=== PATIENT | female | born 1995 | race Hispanic/Latino ===

== ENCOUNTER 2019-03-29 23:23 | Emergency (ER) | payer BC ==
--- OUTSIDE RECORDS SUMMARY | 2019-03-29 23:26 | XMS REPORT ---
:1995 Author Organization [employer] Care Team Providers Name Role Phone Sharmila Cameron Provider Role Unavailable Allergies, Adverse Reactions, Alerts Substance Reaction Event Type N.K.D.A. Info Not Available Non Drug Allergy Problems Problem Type Condition Code Onset Dates Condition Status Problem Vaginal delivery O80 Active Assessment Nexplanon insertion Z30.017 Active Problem History of group B Streptococcus Z86.19 Active (GBS) infection Assessment Encounter for initial prescription Z30.017 Active of implantable subdermal contraceptive Medications No Known Medications Results Name Result Date Reference Range Unit Abnormality Flag TEST URINE ----RESULTS neg 20180122 URINALYSIS AUTO W/O SCOPE ([id number]) ----PROTEIN neg 20180122 ----pH 6.5 20180122 ----NIT neg 20180122 ----TRIPP TR 20180122 ----URO 2.0 20180122 ----SPECIFIC GRAVITY 1.020 20180122 ----BLO neg 20180122 ----BILIRUBIN neg 20180122 ----KETONES 1+ 20180122 ----GLUCOSE neg 20180122 Summary Purpose [employer]ClinicalWorks Submission
--- OUTSIDE RECORDS SUMMARY | 2019-03-29 23:26 | XMS REPORT ---
:1995 Author Organization [employer] Care Team Providers Name Role Phone Sharmila Cameron Provider Role Unavailable Allergies, Adverse Reactions, Alerts Substance Reaction Event Type N.K.D.A. Info Not Available Non Drug Allergy Problems Problem Type Condition Code Onset Dates Condition Status Problem Vaginal delivery O80 Active Assessment Encounter for routine Z39.2 Active follow-up Problem History of group B Streptococcus Z86.19 Active (GBS) infection Assessment Vaginal delivery O80 Active Assessment History of group B Streptococcus Z86.19 Active (GBS) infection Medications No Known Medications Results No Known Results Summary Purpose [employer] Submission
[2019-03-29] MEDS ORDERED: LIDOCAINE 1% 20 ML MDV ONE ×2 (23:51→23:56)
--- NOTE | 2019-03-30 00:19 | ER ---
Nurse's Notes [facility] Name: Alka Elaine Age: 23 yrs Sex: Female : 1995 Arrival Date: 03/29/2019 Time: 23:25 Bed 6 Private MD: Diagnosis: Laceration without foreign body, right lower leg Presentation: 03/29 23:37 Presenting complaint: Patient states: Was playing outside in the dark and cut leg on a tl2 tree stump. Laceration sustained to right knee, bleeding controlled. Denies pain to leg. Transition of care: patient was not received from another setting of care. Onset of symptoms was March 29, 2019 at 23:00. Risk Assessment: Do you want to hurt yourself or someone else? Patient reports no desire to harm self or others. Initial Sepsis Screen: Does the patient meet any 2 criteria? No. Patient's initial sepsis screen is negative. Does the patient have a suspected source of infection? No. Patient's initial sepsis screen is negative. Care prior to arrival: None. 23:37 Method Of Arrival: Wheelchair tl2 23:37 Acuity: TAM 4 tl2 Triage Assessment: 23:38 General: Appears in no apparent distress. uncomfortable, Behavior is calm, cooperative, tl2 appropriate for age. Pain: Complains of pain in right knee. Neuro: Level of Consciousness is awake, alert, obeys commands, Oriented to person, place, time, situation. Respiratory: Airway is patent Respiratory effort is even, unlabored, Respiratory pattern is regular, symmetrical. Derm: Skin is pink, warm \T\ dry. Injury Description: Laceration sustained to right knee is clean, full thickness, 2.6 to 7.5 cm long, not bleeding, was sustained 30-60 minutes ago. a small amount of bleeding noted at this time. 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 - Social history:: Smoking status: Patient/guardian denies using tobacco. - Ebola Screening: : No symptoms or risks identified at this time. Screenin:40 Abuse screen: Denies threats or abuse. Nutritional screening: No deficits noted. tl2 Tuberculosis screening: No symptoms or risk factors identified. Fall Risk Gait- Impaired (20 pts.). Assessment: 23:41 General: see triage assessment. tl2 03/30 00:41 Reassessment: Patient appears in no apparent distress at this time. Patient and/or tl2 family updated on plan of care and expected duration. Pain level reassessed. Patient is alert, oriented x 3, equal unlabored respirations, skin warm/dry/pink. pt verbalized understanding of discharge instructions, need for follow up, prescription usage, wound care and use of knee immobilizer. Vital Signs: 03/29 23:38 BP 143 / 74; Pulse 92; Resp 18; Temp 98.7(O); Pulse Ox 98% on R/A; Weight 63.5 kg; tl2 Height 5 ft. 6 in. (167.64 cm); Pain 3/10; 03/30 00:41 BP 111 / 74; Pulse 74; Resp 18; Pulse Ox 99% on R/A; tl2 03/29 23:38 Body Mass Index 22.60 (63.50 kg, 167.64 cm) tl2 ED Course: 03/29 23:25 Patient arrived in ED. am2 23:35 Sidney Parr NP is PHCP. pm1 23:35 Perfecto Fajardo MD is Attending Physician. pm1 23:36 Brittney Foley RN is Primary Nurse. tl2 23:38 Triage completed. tl2 23:38 Arm band placed on right wrist. tl2 23:40 Patient has correct armband on for positive identification. Bed in low position. Call tl2 light in reach. Side rails up X 1. Adult w/ patient. 03/30 00:20 Assist provider with laceration repair on right knee that was between 2.6 to 7.5 cm tl2 using gordon. Set up tray. Performed by Sidney Parr PHOTONICS TECHNICIAN Dressed with 4X4s, Kerlix, Neosporin, Patient tolerated well. 00:20 Patient did not have IV access during this emergency room visit. tl2 00:41 Knee immobilizer applied on right knee. tl2 Administered Medications: 00:22 Drug: Lidocaine (1 %) 5 ml Volume: 5 ml; Route: Infiltration; tl2 00:30 Drug: [place] 5 mg-325 mg 1 tabs Route: PO; tl2 00:42 Follow up: Response: No adverse reaction; Medication administered at discharge. 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 Exp: tl2 12/20/2020. Lot #: [id number]. } Route: IM; Site: right deltoid; 00:42 Follow up: Response: No adverse reaction; Medication administered at discharge. tl2 Outcome: 00:16 Discharge ordered by MD. pm1 00:41 Discharged to home via wheelchair, with family. tl2 00:41 Condition: stable 00:41 Discharge instructions given to patient, family, Instructed on discharge instructions, follow up and referral plans. medication usage, wound care, Demonstrated understanding of instructions, follow-up care, medications, wound care, Prescriptions given X 2. 00:43 Patient left the ED. tl2 Signatures: Sidney Parr NP PHOTONICS TECHNICIAN pm1 Brittney Foley RN RN tl2 Yamileth Rogers am2
--- NOTE | 2019-03-30 00:20 | EDPHYS ---
Physician Documentation [facility] Name: Alka Elaine Age: 23 yrs Sex: Female : 1995 Arrival Date: 03/29/2019 Time: 23:25 Bed 6 Private MD: ED Physician Perfecto Fajardo HPI: 03/30 00:25 This 23 yrs old Female presents to ER via Wheelchair with complaints of pm1 Laceration To Leg. 00:25 The patient presents with a laceration, 6 cm(s), irregular. The complaints affect the pm1 right knee. Context: The problem was sustained outdoors, resulted from Patient tripped and fell down and possibly cut her right knee against a tree branch, the patient can fully bear weight, the patient is able to ambulate, Problem is a result from a previous injury: No. Onset: The symptoms/episode began/occurred just prior to arrival. Modifying factors: The symptoms are alleviated by nothing. the symptoms are aggravated by nothing. Associated signs and symptoms: Pertinent negatives numbness, swelling, tingling. Treatment prior to arrival includes: applying pressure to the affected area. The patient has not experienced similar symptoms in the past. The patient has not recently seen a physician. Patient was playing hide and seek with her outside and she tripped and possibly cut her right leg against a tree branch. 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 - Social history:: Smoking status: Patient/guardian denies using tobacco. - Ebola Screening: : No symptoms or risks identified at this time. ROS: 03/30 00:25 Constitutional: Negative for fever, chills, and weight loss, Eyes: Negative for injury, pm1 pain, redness, and discharge, ENT: Negative for injury, pain, and discharge, Neck: Negative for injury, pain, and swelling, Cardiovascular: Negative for chest pain, palpitations, and edema, Respiratory: Negative for shortness of breath, cough, wheezing, and pleuritic chest pain, Abdomen/GI: Negative for abdominal pain, nausea, vomiting, diarrhea, and constipation, Back: Negative for injury and pain, MS/Extremity: Negative for injury and deformity. Neuro: Negative for headache, weakness, numbness, tingling, and seizure. Skin: Positive for laceration(s), of the right knee. Exam: 00:25 Constitutional: This is a well developed, well nourished patient who is awake, alert, pm1 and in no acute distress. Head/Face: Normocephalic, atraumatic. Eyes: Pupils equal round and reactive to light, extra-ocular motions intact. Lids and lashes normal. Conjunctiva and sclera are non-icteric and not injected. Cornea within normal limits. Periorbital areas with no swelling, redness, or edema. Neck: Trachea midline, no thyromegaly or masses palpated, and no cervical lymphadenopathy. Supple, full range of motion without nuchal rigidity, or vertebral point tenderness. No Meningismus. Chest/axilla: Normal chest wall appearance and motion. Nontender with no deformity. No lesions are appreciated. Cardiovascular: Regular rate and rhythm with a normal S1 and S2. No gallops, murmurs, or rubs. Normal PMI, no JVD. No pulse deficits. Respiratory: Lungs have equal breath sounds bilaterally, clear to auscultation and percussion. No rales, rhonchi or wheezes noted. No increased work of breathing, no retractions or nasal flaring. Abdomen/GI: Soft, non-tender, with normal bowel sounds. No distension or tympany. No guarding or rebound. No evidence of tenderness throughout. Back: No spinal tenderness. No costovertebral tenderness. Full range of motion. 00:25 MS/ Extremity: Pulses equal, no cyanosis. Neurovascular intact. Full, normal range of motion. 00:25 Skin: Appearance: normal except for affected area, injury, laceration(s), the wound is approximately 6 cm(s), with a depth of 1 cm(s), of the just below right knee. 00:25 Neuro: Orientation: is normal, Motor: is normal, Sensation: is normal, no obvious gross deficits. Vital Signs: 03/29 23:38 BP 143 / 74; Pulse 92; Resp 18; Temp 98.7(O); Pulse Ox 98% on R/A; Weight 63.5 kg; tl2 Height 5 ft. 6 in. (167.64 cm); Pain 3/10; 03/30 00:41 BP 111 / 74; Pulse 74; Resp 18; Pulse Ox 99% on R/A; tl2 03/29 23:38 Body Mass Index 22.60 (63.50 kg, 167.64 cm) tl2 Laceration: 00:25 Wound Repair of 6cm ( 2.4in ) subcutaneous laceration to right knee. Irregularly pm1 shaped.. Distal neuro/vascular/tendon intact. Anesthesia: Local anesthetic administered with 8 mls of 1% lidocaine. Wound prep: Extensive cleansing with hibiclenz by me, Wound irrigation with saline by me, Wound explored extensively, Copious irrigation. Skin closed with 6 1-0 Katelin using staple gun. Dressed with Neosporin, 4x4's, Kerlix. Patient tolerated well. MDM: 00:14 Patient medically screened. pm1 00:15 Data reviewed: vital signs. Data interpreted: Pulse oximetry: on room air is 98 %. pm1 Interpretation: normal. Counseling: I had a detailed discussion with the patient and/or guardian regarding: the historical points, exam findings, and any diagnostic results supporting the discharge/admit diagnosis, the need for outpatient follow up, staple removal in 10-14 days, to return to the emergency department if symptoms worsen or persist or if there are any questions or concerns that arise at home. 03/30 00:14 Order name: Dressing - Wound; Complete Time: 00:22 pm1 03/30 00:14 Order name: Gloves, Sterile; Complete Time: 00:22 pm1 03/30 00:14 Order name: Setup Suture Tray; Complete Time: 00:22 pm1 03/30 00:26 Order name: Knee Immobilizer; Complete Time: 00:39 pm1 Administered Medications: 00:22 Drug: Lidocaine (1 %) 5 ml Volume: 5 ml; Route: Infiltration; tl2 00:30 Drug: [place] 5 mg-325 mg 1 tabs Route: PO; tl2 00:42 Follow up: Response: No adverse reaction; Medication administered at discharge. 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 Exp: tl2 12/20/2020. Lot #: [id number]. } Route: IM; Site: right deltoid; 00:42 Follow up: Response: No adverse reaction; Medication administered at discharge. tl2 Disposition: 03/30/19 00:16 Discharged to Home. Impression: Laceration without foreign body, right lower leg. - Condition is Stable. - Discharge Instructions: Knee Immobilizer, Laceration Care, Adult. - Prescriptions for Keflex 500 mg Oral Capsule - take 1 capsule by ORAL route every 12 hours for 10 days; 20 capsule. Tylenol- Codeine #3 300-30 mg Oral Tablet - take 2 tablet by ORAL route every 6 hours As needed; 30 tablet. - Medication Reconciliation Form, Thank You Letter, Antibiotic Education, Prescription Opioid Use form. - Follow up: Emergency Department; When: As needed; Reason: Worsening of condition. Follow up: Private Physician; When: 10 - 14 days; Reason: Recheck today's complaints, Continuance of care, Re-evaluation by your physician. - Problem is new. - Symptoms have improved. Signatures: Sidney Prar NP BOOK CANVASSER pm1 Brittney Foley RN RN tl2 Corrections: (The following items were deleted from the chart) 00:43 00:16 03/30/2019 00:16 Discharged to Home. Impression: Laceration without foreign body, tl2 right lower leg. Condition is Stable. Forms are Medication Reconciliation Form, Thank You Letter, Antibiotic Education, Prescription Opioid Use. Follow up: Emergency Department; When: As needed; Reason: Worsening of condition. Follow up: Private Physician; When: 10 - 14 days; Reason: Recheck today's complaints, Continuance of care, Re-evaluation by your physician. Problem is new. Symptoms have improved. pm1
[2019-03-30] MEDS ORDERED: HYDROCODONE/APAP 5/325 MG TAB ONE (00:41)
[2019-03-30] MEDS ORDERED: TETANUS & DIPHTHERIA TOX,ADULT 0.5 ML VIAL ONE (00:41)
[2019-04-01 16:07] VITALS: BP 111/74; TEMP 98.7; O2SAT 99
== END 2019-03-30 00:43 | disposition home or self-care (01) ==
LOC: ER 23:23
PROC: 0JQN0ZZ Repair Right Lower Leg Subcutaneous Tissue and Fascia, Open Approach (ICD-10-PCS; principal; 2019-03-30)
DX: S81.011A Laceration without foreign body, right knee, initial encounter (principal); W01.198A Fall on same level from slipping, tripping and stumbling with subsequent striking against other object, initial encounter; Y93.89 Activity, other specified; Y92.89 Other specified places as the place of occurrence of the external cause; Z23 Encounter for immunization
CPT/HCPCS: 90471; 90714; 99284

== ENCOUNTER 2019-05-07 21:11 | Emergency (ER) | payer BC ==
--- OUTSIDE RECORDS SUMMARY | 2019-05-07 21:13 | XMS REPORT ---
[...] ----RESULTS neg 20180122 URINALYSIS AUTO W/O SCOPE ([id number]) ----PROTEIN neg 20180122 ----pH 6.5 20180122 ----NIT neg 20180122 ----TRIPP TR 20180122 ----URO 2.0 20180122 ----SPECIFIC GRAVITY 1.020 20180122 ----BLO neg 20180122 ----BILIRUBIN neg 20180122 ----KETONES 1+ 20180122 ----GLUCOSE neg 20180122 Summary Purpose eClinicalWorks Submission
--- OUTSIDE RECORDS SUMMARY | 2019-05-07 21:13 | XMS REPORT ---
[...] Medications Results No Known Results Summary Purpose [employer] Submission
--- NOTE | 2019-05-07 21:37 | EDPHYS ---
Physician Documentation [facility] Name: Alka Elaine Age: 23 yrs Sex: Female : 1995 Arrival Date: 05/07/2019 Time: 21:12 Bed 30 Private MD: ED Physician Pascual Anaya HPI: 05/07 21:40 This 23 yrs old Female presents to ER via Ambulatory with complaints of Staple snw Removal. 21:40 The patient has gordon on the right keen. Previous treatment: The patient was snw initially treated on March 30, 2019, the care was rendered at [facility], Treatment type: The patient's original treatment included oral antibiotics, gordon, Outpatient prescription(s): The patient was given prescription(s) for yes, pt started but did not finish, Previous recheck: the patient has not been checked since the original treatment. Sutures/gordon progress: The patient's wound displays wound dehiscence, healing by secondary intention, no evidence of infection. The patient has not experienced similar symptoms in the past. It is unknown whether or not the patient has recently seen a physician. 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 - Social history:: Smoking status: Patient/guardian denies using tobacco. - Ebola Screening: : No symptoms or risks identified at this time. ROS: 21:39 Constitutional: Negative for fever, chills, and weight loss, Eyes: Negative for injury, snw pain, redness, and discharge, ENT: Negative for injury, pain, and discharge, Neck: Negative for injury, pain, and swelling, Cardiovascular: Negative for chest pain, palpitations, and edema, Respiratory: Negative for shortness of breath, cough, wheezing, and pleuritic chest pain, Abdomen/GI: Negative for abdominal pain, nausea, vomiting, diarrhea, and constipation, Back: Negative for injury and pain, : Negative for injury, bleeding, discharge, and swelling, MS/Extremity: Negative for injury and deformity, Neuro: Negative for headache, weakness, numbness, tingling, and seizure, Psych: Negative for depression, anxiety, suicide ideation, homicidal ideation, and hallucinations. 21:39 Skin: Positive for need gordon removed. Exam: 21:37 Constitutional: This is a well developed, well nourished patient who is awake, alert, snw and in no acute distress. Head/Face: Normocephalic, atraumatic. Eyes: Pupils equal round and reactive to light, extra-ocular motions intact. Lids and lashes normal. Conjunctiva and sclera are non-icteric and not injected. Cornea within normal limits. Periorbital areas with no swelling, redness, or edema. ENT: Nares patent. No nasal discharge, no septal abnormalities noted. Tympanic membranes are normal and external auditory canals are clear. Oropharynx with no redness, swelling, or masses, exudates, or evidence of obstruction, uvula midline. Mucous membranes moist. Neck: Trachea midline, no thyromegaly or masses palpated, and no cervical lymphadenopathy. Supple, full range of motion without nuchal rigidity, or vertebral point tenderness. No Meningismus. Chest/axilla: Normal chest wall appearance and motion. Nontender with no deformity. No lesions are appreciated. Cardiovascular: Regular rate and rhythm with a normal S1 and S2. No gallops, murmurs, or rubs. Normal PMI, no JVD. No pulse deficits. Respiratory: Lungs have equal breath sounds bilaterally, clear to auscultation and percussion. No rales, rhonchi or wheezes noted. No increased work of breathing, no retractions or nasal flaring. Abdomen/GI: Soft, non-tender, with normal bowel sounds. No distension or tympany. No guarding or rebound. No evidence of tenderness throughout. Back: No spinal tenderness. No costovertebral tenderness. Full range of motion. MS/ Extremity: Pulses equal, no cyanosis. Neurovascular intact. Full, normal range of motion. Neuro: Awake and alert, GCS 15, oriented to person, place, time, and situation. Cranial nerves II-XII grossly intact. Motor strength 5/5 in all extremities. Sensory grossly intact. Cerebellar exam normal. Normal gait. Psych: Awake, alert, with orientation to person, place and time. Behavior, mood, and affect are within normal limits. 21:37 Skin: Appearance: normal except for affected area, injury, here for staple removal, area of dehiscence noted to central area of wound, gordon x 2 already removed, no erythema surrounding area, no fever. Pt was given rx for antibiotics at initial visit. Pt states she started but didn't finish rx. Vital Signs: 21:15 BP 123 / 66; Pulse 82; Resp 19; Temp 97.4; Pulse Ox 98% on R/A; Weight 68.04 kg; Height aj 5 ft. 6 in. (167.64 cm); 21:45 BP 112 / 65; Pulse 84; Resp 16; Temp 98.7(O); Pulse Ox 98% on R/A; lc1 21:15 Body Mass Index 24.21 (68.04 kg, 167.64 cm) aj MDM: 21:30 Patient medically screened. snw 21:39 Data reviewed: vital signs, nurses notes. Data interpreted: Pulse oximetry: is 98 %. snw Interpretation: normal. Counseling: I had a detailed discussion with the patient and/or guardian regarding: the historical points, exam findings, and any diagnostic results supporting the discharge/admit diagnosis, the need for outpatient follow up, to return to the emergency department if symptoms worsen or persist or if there are any questions or concerns that arise at home. Special discussion: Based on the history and exam findings, there is no indication for further emergent testing or inpatient evaluation. I discussed with the patient/guardian the need to see the primary care provider for further evaluation of the symptoms. Administered Medications: 22:00 Drug: Hibiclens 4 % 1 application Route: Topical; Site: wound; 1 22:08 Follow up: Response: No adverse reaction [facility] 22:01 Drug: Bactroban Ointment 2 % 1 application Route: Topical; Site: wound; [facility] 22:08 Follow up: Response: No adverse reaction [facility] Disposition: 05/08 06:56 Co-signature as Attending Physician, Pascual Anaya MD Available for consultation at ps1 all times . Disposition: 05/07/19 21:36 Discharged to Home. Impression: Encounter for removal of sutures. - Condition is Stable. - Discharge Instructions: Delayed Wound Closure, Suture Removal, Care After, Incision Care, Adult, Wound Care. - Medication Reconciliation Form, Thank You Letter, Antibiotic Education, Prescription Opioid Use form. - Follow up: Private Physician; When: 2 - 3 days; Reason: Recheck today's complaints, Continuance of care, Re-evaluation by your physician. Follow up: Emergency Department; When: As needed; Reason: Worsening of condition. Signatures: Yamileth Barajas, RN RN Yin Redd, WAIT STAFF-C WAIT STAFF-Csnw Muriel Curry lc1 Pascual Anaya MD MD ps1 Corrections: (The following items were deleted from the chart) 05/07 21:44 21:40 The patient has snw snw 22:14 21:36 05/07/2019 21:36 Discharged to Home. Impression: Encounter for removal of lc1 sutures. Condition is Stable. Forms are Medication Reconciliation Form, Thank You Letter, Antibiotic Education, Prescription Opioid Use. Follow up: Private Physician; When: 2 - 3 days; Reason: Recheck today's complaints, Continuance of care, Re-evaluation by your physician. Follow up: Emergency Department; When: As needed; Reason: Worsening of condition. snw
--- NOTE | 2019-05-07 21:37 | ER ---
Nurse's Notes [facility] Name: Alka Elaine Age: 23 yrs Sex: Female : 1995 Arrival Date: 05/07/2019 Time: 21:12 Bed 30 Private MD: Diagnosis: Encounter for removal of sutures Presentation: 05/07 21:15 Presenting complaint: Patient states: Needs gordon to left keen removed, place 2-3 aj weeks ago. Transition of care: patient was not received from another setting of care. Onset of symptoms was May 07, 2019. Risk Assessment: Do you want to hurt yourself or someone else? Patient reports no desire to harm self or others. Initial Sepsis Screen: Does the patient meet any 2 criteria? No. Patient's initial sepsis screen is negative. Does the patient have a suspected source of infection? No. Patient's initial sepsis screen is negative. Care prior to arrival: None. 21:15 Method Of Arrival: Ambulatory aj 21:15 Acuity: TAM 5 aj Triage Assessment: 21:15 General: Appears in no apparent distress. comfortable, Behavior is calm, cooperative, aj appropriate for age. Pain: Denies pain. Neuro: Level of Consciousness is awake, alert, obeys commands, Oriented to person, place, time, situation, Appropriate for age. Respiratory: Airway is patent Respiratory effort is even, unlabored, Respiratory pattern is regular, symmetrical. Derm: Skin is intact, is healthy with good turgor, Skin is pink, warm \T\ dry. normal. INSOLE TAPER: 22:13 unknown lc1 Historical: - Allergies: 21:15 No Known Allergies; aj - Immunization history:: Adult Immunizations up to date. - Social history:: Smoking status: Patient/guardian denies using tobacco. - Ebola Screening: : No symptoms or risks identified at this time. Screenin:45 Abuse screen: Denies threats or abuse. Nutritional screening: No deficits noted. lc1 Tuberculosis screening: No symptoms or risk factors identified. Fall Risk None identified. Assessment: 21:45 General: Appears in no apparent distress. Pain: Denies pain. Neuro: No deficits noted. lc1 Cardiovascular: No deficits noted. Respiratory: No deficits noted. GI: No deficits noted. : No deficits noted. EENT: No deficits noted. Derm: gordon to left keen from several weeks ago. Vital Signs: 21:15 BP 123 / 66; Pulse 82; Resp 19; Temp 97.4; Pulse Ox 98% on R/A; Weight 68.04 kg; Height aj 5 ft. 6 in. (167.64 cm); 21:45 BP 112 / 65; Pulse 84; Resp 16; Temp 98.7(O); Pulse Ox 98% on R/A; 1 21:15 Body Mass Index 24.21 (68.04 kg, 167.64 cm) ED Course: 21:12 Patient arrived in ED. am2 21:13 [facility]in Kelsey [facility]-C [facility] snw 21:13 Pascual Anaya MD is Attending Physician. snw 21:15 Triage completed. aj 21:15 Arm band placed on left wrist. Patient placed in an exam room. 21:17 Muriel Curry is Primary Nurse. [facility] 21:45 Patient has correct armband on for positive identification. Bed in low position. [facility] 21:45 provider removed gordon. Patient did not have IV access during this emergency room 1 visit. Administered Medications: 22:00 Drug: Hibiclens 4 % 1 application Route: Topical; Site: wound; [facility] 22:08 Follow up: Response: No adverse reaction [facility] 22:01 Drug: Bactroban Ointment 2 % 1 application Route: Topical; Site: wound; [facility] 22:08 Follow up: Response: No adverse reaction [facility] Outcome: 21:36 Discharge ordered by MD. [facility] 21:45 Discharged to home [facility] 21:45 Condition: good 21:45 Discharge instructions given to patient, Instructed on discharge instructions, wound care, Demonstrated understanding of instructions, follow-up care, wound care. 22:14 Patient left the ED. [facility] Signatures: Yamileth Barajas, RN RN Yin Redd FNP-C FNP-Aravindw Muriel Curry [facility] Yamileth Rogers [facility]
[2019-05-07] MEDS ORDERED: MUPIROCIN 2% OINT 22GM TUBE TOP ONE (21:53)
[2019-05-07 22:44] VITALS: O2SAT 98
[2019-05-07 22:45] VITALS: BP 112/65; TEMP 98.7
== END 2019-05-07 22:14 | disposition home or self-care (01) ==
LOC: ER 21:11
DX: Z48.02 Encounter for removal of sutures (principal)
CPT/HCPCS: 99283